=== PATIENT | male | born 1945 | race Hispanic/Latino ===

== ENCOUNTER 2018-04-29 12:22 | Inpatient (IN) | payer MEDICARE ==
--- NOTE | 2018-04-29 12:57 | Emergency Department Report ---
ED Neuro Deficit HPI - General Chief Complaint: Neuro Symptoms/Deficit Stated Complaint: POSSIBLE STROKE Time Seen by Provider: 04/29/18 12:55 Source: patient, family Mode of arrival: Ambulatory Limitations: No Limitations - History of Present Illness Initial Comments: This is a 72-year-old male who is unknown to this provider previously, has a past medical history of stroke, in the right ear, mild residual right- sided weakness. His primary care doctor is Dr. Nikolai Mcfarland. He presents to the ER with a complaint of resolved speech disturbance, resolved slurred speech, and resolved weakness in the right upper extremity, and resolved numbness in the right lower extremity. He has no complaints at this time. -: Sudden Location: speech, right arm, right leg Presenting Symptoms: Present: Weak/Paralyzed One Side, Unable to Speak Clearly. Absent: Sudden, Severe Headache, Blurred/Loss of Vision, Facial Droop/Numbness , Altered Mental Status History of same: Yes Place: home Severity: moderate Improves With: none Worsens With: none On Anticoagulants: Yes Context: sudden onset Associated Symptoms: weakness. denies: confusion, chest pain, cough, diaphoresis, fever/chills, headaches, loss of appetite, malise, nausea/vomiting , vertigo, seizures, shortness of breath, syncope - Related Data Allergies/Adverse Reactions: Allergies Allergy/AdvReac Type Severity Reaction Status Date / Time latex Allergy Unknown Verified 04/29/18 12:44 ED Review of Systems ROS: Stated complaint: POSSIBLE STROKE Other details as noted in HPI Constitutional: denies: fever Eyes: denies: eye discharge ENT: denies: epistaxis Respiratory: denies: cough Cardiovascular: denies: chest pain Genitourinary: denies: dysuria Musculoskeletal: denies: back pain Skin: denies: lesions Neurological: weakness Psychiatric: anxiety ED Past Medical Hx - Past Medical History Hx CVA: Yes (2008- mild weakness right side) Hx Arthritis: Yes (bilateral knees) Additional medical history: deaf right ear,hearing aid left ear - Surgical History Additional Surgical History: left femur,tonsillectomy - Social History Smoking Status: Never Smoker Substance Use Type: None ED Neuro Physical Exam - General Limitations: No Limitations General appearance: alert, in no apparent distress Suspected Stroke: Yes - Head Head exam: Present: atraumatic, normocephalic - Eye Eye exam: Present: normal appearance, EOMI. Absent: nystagmus - ENT ENT exam: Present: normal exam, normal orophraynx, mucous membranes moist, normal external ear exam - Neck Neck exam: Present: normal inspection, full ROM. Absent: tenderness, meningismus - Respiratory Respiratory exam: Present: normal lung sounds bilaterally. Absent: respiratory distress - Cardiovascular Cardiovascular Exam: Present: regular rate, normal rhythm, normal heart sounds. Absent: bradycardia, tachycardia, irregular rhythm, systolic murmur, diastolic murmur, rubs, gallop - GI/Abdominal GI/Abdominal exam: Present: soft. Absent: distended, tenderness, guarding, rebound, rigid, pulsatile mass - Rectal Rectal exam: Present: deferred - Extremities Exam Extremities exam: Present: normal inspection, full ROM, normal capillary refill , other (2+ pulses noted in the bilateral upper, lower extremities. Compartments soft. No long bony tenderness. The pelvis is stable.). Absent: tenderness, pedal edema, joint swelling, calf tenderness - Back Exam Back exam: Present: normal inspection, full ROM. Absent: tenderness, CVA tenderness (R), paraspinal tenderness, vertebral tenderness - Neurological Exam Neurological exam: Present: alert, oriented X3, CN II-XII intact, normal gait, other (Extraocular movements intact. Tongue midline. No facial droop. Facial sensation intact to light touch in the V1, V2, V3 distribution bilaterally. 5 and 5 strength in 4 extremities.. Sensation is intact to light touch in 4 extremities.). Absent: motor sensory deficit - NIHSS Assessment Interval: Baseline 1a. Level of Consciousness: alert 1b. LOC Questions: answers correctly 1c. LOC Commands: performs tasks correctly 2. Best Gaze: normal 3. Visual: no visual loss 4. Facial Palsy: normal symmetrical movement 5b. Motor Arm Right: no drift 5a. Motor Arm Left: no drift 6a. Motor Leg Left: no drift 6b. Motor Leg Right: no drift 7. Limb Ataxia: absent 8. Sensory: normal 9. Best Language: no aphasia 10. Dysarthria: normal 11. Extinction/Inattention: no abnormality Total Score: 0 Stroke Severity: No Stroke Symptoms - Psychiatric Psychiatric exam: Present: normal affect, normal mood - Skin Skin exam: Present: warm, dry, intact, normal color. Absent: rash ED Course Vital Signs 04/29/18 04/29/18 04/29/18 12:35 12:46 12:47 Temperature 97.9 F Pulse Rate 83 Respiratory 18 Rate Blood Pressure 178/91 O2 Sat by Pulse 98 97 98 Oximetry - Reevaluation(s) Reevaluation #1: 04/29/18 14:10 Dr. Horan accepted the patient to the medical service. Reevaluation #2: 04/29/18 14:19 04/29/18 14:20 Case is discussed with consult to neurology, Dr. Linda Cedeno, who is in agreement that the patient does not meet TPA criteria and does not require emergent endovascular intervention. He does recommend every 2 hours neuro checks for the next 12 hours. - Lab Data Result diagrams: 04/29/18 12:40 04/29/18 12:40 Lab Results 04/29/18 04/29/18 04/29/18 Range/Units 12:39 12:40 12:40 WBC 5.3 (4.5-11.0) K/mm3 RBC 4.64 (3.65-5.03) M/mm3 Hgb 15.7 H (11.8-15.2) gm/dl Hct 42.3 (35.5-45.6) % MCV 91 (84-94) fl MCH 34 H (28-32) pg MCHC 37 H (32-34) % RDW 13.5 (13.2-15.2) % Plt Count 152 (140-440) K/mm3 Lymph % (Auto) 24.5 (13.4-35.0) % [place] % (Auto) 6.7 (0.0-7.3) % Eos % (Auto) 1.3 (0.0-4.3) % Baso % (Auto) 1.2 (0.0-1.8) % Lymph # 1.3 (1.2-5.4) K/mm3 [place] # 0.4 (0.0-0.8) K/mm3 Eos # 0.1 (0.0-0.4) K/mm3 Baso # 0.1 (0.0-0.1) K/mm3 Seg Neutrophils % 66.3 (40.0-70.0) % Seg Neutrophils # 3.5 (1.8-7.7) K/mm3 PT 13.0 (12.2-14.9) Sec. INR 0.94 (0.87-1.13) APTT 32.7 (24.2-36.6) Sec. Thrombin Time 17.2 (15.1-19.6) Sec. Sodium (137-145) mmol/L Potassium (3.6-5.0) mmol/L Chloride (98-107) mmol/L Carbon Dioxide (22-30) mmol/L Anion Gap mmol/L BUN (9-20) mg/dL Creatinine (0.8-1.5) mg/dL Estimated GFR ml/min BUN/Creatinine Ratio % Glucose (75-100) mg/dL POC Glucose 122 H (70-105) Calcium (8.4-10.2) mg/dL Troponin T (0.00-0.029) ng/mL 04/29/18 Range/Units 12:40 WBC (4.5-11.0) K/mm3 RBC (3.65-5.03) M/mm3 Hgb (11.8-15.2) gm/dl Hct (35.5-45.6) % MCV (84-94) fl MCH (28-32) pg MCHC (32-34) % RDW (13.2-15.2) % Plt Count (140-440) K/mm3 Lymph % (Auto) (13.4-35.0) % [place] % (Auto) (0.0-7.3) % Eos % (Auto) (0.0-4.3) % Baso % (Auto) (0.0-1.8) % Lymph # (1.2-5.4) K/mm3 [place] # (0.0-0.8) K/mm3 Eos # (0.0-0.4) K/mm3 Baso # (0.0-0.1) K/mm3 Seg Neutrophils % (40.0-70.0) % Seg Neutrophils # (1.8-7.7) K/mm3 PT (12.2-14.9) Sec. INR (0.87-1.13) APTT (24.2-36.6) Sec. Thrombin Time (15.1-19.6) Sec. Sodium 130 L (137-145) mmol/L Potassium 4.5 (3.6-5.0) mmol/L Chloride 94.1 L (98-107) mmol/L Carbon Dioxide 21 L (22-30) mmol/L Anion Gap 19 mmol/L BUN 16 (9-20) mg/dL Creatinine 0.8 (0.8-1.5) mg/dL Estimated GFR > 60 ml/min BUN/Creatinine Ratio 20 % Glucose 146 H (75-100) mg/dL POC Glucose (70-105) Calcium 9.2 (8.4-10.2) mg/dL Troponin T < 0.010 (0.00-0.029) ng/mL - EKG Data -: EKG Interpreted by Me EKG shows normal: sinus rhythm, intervals, QRS complexes When compared to previous EKG there are: previous EKG unavailable - Radiology Data Radiology results: report reviewed, image reviewed Noncontrast CT scan of the brain is negative for acute disease - Medical Decision Making Differential diagnosis, including but not limited to: Transient ischemic attack , stroke, Leonardo's paralysis Assessment and plan: 72-year-old male with resolved right-sided numbness, weakness and resolved slurred speech. Has an NIH score of 0. Therefore does not require TPA. Also, given his resolution of symptoms and his normal examination at this time, does not require emergent endovascular imaging at this time. Patient has a high vascular risk profile, and will be admitted to the hospital for presumed transient ischemic attack. The hospital physician is paged to arrange admission. - Core Measures Measure Exclusions: not indicated - Thrombolytic Inclusion/Exclusion Thrombolytic Contraindications: Rapidily Improving s/s Critical care attestation.: If time is entered above; I have spent that time in minutes in the direct care of this critically ill patient, excluding procedure time. ED Disposition Clinical Impression: TIA (transient ischemic attack) Disposition: -09 OP ADMIT IP TO THIS HOSP Is pt being admited?: Yes Does the pt Need Aspirin: Yes Condition: Good Referrals: NIKOLAI MCFARLAND MD [Primary Care Provider] - 3-5 Days
[2018-04-29 13:03] LABS: Basophils # (Auto) 0.1 K/mm3 (0.0-0.1); Basophils % (Auto) 1.2 % (0.0-1.8); Eosinophils # (Auto) 0.1 K/mm3 (0.0-0.4); Eosinophils % (Auto) 1.3 % (0.0-4.3); Lymphocytes # (Auto) 1.3 K/mm3 (1.2-5.4); Lymphocytes % (Auto) 24.5 % (13.4-35.0); Mean Corpuscular HGB Conc 37 % (32-34); Mean Corpuscular Hemoglobin 34 pg (28-32); Mean Corpuscular Volume 91 fl (84-94); Monocytes # (Auto) 0.4 K/mm3 (0.0-0.8); Monocytes % (Auto) 6.7 % (0.0-7.3); Platelet Count 152 K/mm3 (140-440); Red Blood Count 4.64 M/mm3 (3.65-5.03); Red Cell Distribution Width 13.5 % (13.2-15.2)
[2018-04-29 13:08] LABS: Hematocrit 42.3 % (35.5-45.6); Hemoglobin 15.7 gm/dl (11.8-15.2)
[2018-04-29 13:10] LABS: BUN/Creatinine Ratio 20; Blood Urea Nitrogen 16 mg/dL (9-20); Calcium 9.2 mg/dL (8.4-10.2); Hemolysis Index 21
[2018-04-29 13:13] LABS: INR 0.94 (0.87-1.13)
[2018-04-29 13:14] LABS: Partial Thromboplastin Time 32.7 Sec. (24.2-36.6); Thrombin Time 17.2 Sec. (15.1-19.6)
--- NOTE | 2018-04-29 13:29 | Cat Scan Report ---
FINAL REPORT EXAM: CT HEAD/BRAIN WO CON HISTORY: neuro deficits < 6hrs or sx present upon awakening TECHNIQUE: CT of the head was performed. No intravenous contrast was administered. PRIORS: None. FINDINGS: There is an old left thalamic lacunar infarct. There is no evidence of intracranial hemorrhage. There is no edema, mass effect or midline shift. There are no abnormal extra-axial fluid collections. The ventricles are appropriate for brain volume. There is no skull fracture seen. The visualized aspects of the sinuses are clear. IMPRESSION: There is no acute intracranial abnormality identified.
[2018-04-29] MEDS ORDERED: BABY ASPIRIN PO ONE ×2 (13:50→17:30)
--- NOTE | 2018-04-29 14:06 | History and Physical Report ---
History of Present Illness Chief complaint: I felt weak History of present illness: 72 YO Male with CVA, OA presents to ED for evaluation. Pt states that he experienced acute onset of blurred vision, Facial weakness, slurred speech, right arm and right leg weakness. Pt symptoms resolved after about 30 minutes. Pt subsequently transported to [facility] for further care and evaluation. Pt denies fever, chills, CP, Palpitations, NVD, Syncope, Trauma, Seizure, loss of bowel or bladder continence. Pt seen and evaluated in ED. A code stroke was called. Pt found to have symptoms consistent with CVA. Pt outside therapeutic window for TPA. Pt admitted to telemetry and initiated on CVA protocol. Past History Past Medical History: arthritis, stroke Past Surgical History: tonsillectomy, Other (Left Femur surgery) Social history: , lives with family Family history: no significant family history (reviewed) Medications and Allergies Allergies Allergy/AdvReac Type Severity Reaction Status Date / Time latex Allergy Unknown Verified 04/29/18 12:44 Home Medications Medication Instructions Recorded Confirmed Last Taken Type Lisinopril [Zestril TAB] 10 mg PO QDAY 04/29/18 04/29/18 04/29/18 History Multivitamin [Multiple Vitamins] 1 each PO DAILY 04/29/18 04/29/18 04/29/18 History Review of Systems Constitutional: no weight loss, no weight gain, no fever, no chills Ears, nose, mouth and throat: no ear pain, no ear discharge, no tinnitis, no decreased hearing, no nose pain, no nasal congestion Cardiovascular: no orthopnea, no palpitations, no rapid/irregular heart beat, no edema, no syncope, no lightheadedness Respiratory: no cough, no cough with sputum, no excessive sputum, no hemoptysis , no shortness of breath Gastrointestinal: no abdominal pain, no nausea, no vomiting, no diarrhea, no constipation Genitourinary Male: no hematuria, no flank pain, no discharge, no urinary frequency, no urinary hesitancy Rectal: no pain, no incontinence, no bleeding Musculoskeletal: no neck stiffness, no neck pain, no shooting arm pain, no arm numbness/tingling, no low back pain, no shooting leg pain Integumentary: no rash, no pruritis, no redness, no sores, no wounds Neurological: weakness, ataxia, change in speech, gait dysfunction, motor disturbance, no head injury, no seizures, no vertigo, no headaches, no migraines Psychiatric: no anxiety, no memory loss, no change in sleep habits, no sleep disturbances, no insomnia, no hypersomnia, no change in appetite Endocrine: no cold intolerance, no heat intolerance, no polyphagia, no excessive thirst, no polydipsia, no polyuria, no nocturia Hematologic/Lymphatic: no easy bruising, no easy bleeding, no lymphadenopathy, no lymphedema Allergic/Immunologic: no urticaria, no allergic rhinitis, no wheezing, no persistent infections, no anaphylaxis Exam - Constitutional Vitals: Temp Pulse Resp BP Pulse Ox 97.9 F 83 18 178/91 98 04/29/18 12:35 04/29/18 12:35 04/29/18 12:35 04/29/18 12:35 04/29/18 12:47 General appearance: Present: no acute distress, well-nourished - EENT Eyes: Present: PERRL ENT: hearing intact, clear oral mucosa - Neck Neck: Present: supple, normal ROM - Respiratory Respiratory effort: normal Respiratory: bilateral: CTA - Cardiovascular Heart Sounds: Present: S1 & S2. Absent: rub, click - Extremities Extremities: pulses symmetrical, No edema Peripheral Pulses: within normal limits - Abdominal General gastrointestinal: Present: soft, non-tender, non-distended, normal bowel sounds Male genitourinary: Present: normal - Integumentary Integumentary: Present: clear, warm, dry - Musculoskeletal Musculoskeletal: right sided weakness - Psychiatric Psychiatric: appropriate mood/affect, intact judgment & insight - Neurologic Neurologic: CNII-XII intact, moves all extremities Results - Labs CBC & Chem 7: 04/29/18 12:40 04/29/18 12:40 Labs: Abnormal lab results 04/29/18 04/29/18 04/29/18 Range/Units 12:39 12:40 12:40 Hgb 15.7 H (11.8-15.2) gm/dl MCH 34 H (28-32) pg MCHC 37 H (32-34) % Sodium 130 L (137-145) mmol/L Chloride 94.1 L (98-107) mmol/L Carbon Dioxide 21 L (22-30) mmol/L Glucose 146 H (75-100) mg/dL POC Glucose 122 H (70-105) Assessment and Plan - Patient Problems (1) CVA (cerebral vascular accident) Current Visit: Yes Status: Acute Qualifiers: Precerebral and cerebral artery: middle cerebral artery Laterality of affected vessel: left Plan to address problem: Stroke protocol: CT Brain, MRI Brain, MRA Brain, Echo, Carotid doppler, PT/OT/ Speech Therapy, Antiplatelet therapy, lipid panel, neuro checks, (2) Arthritis Current Visit: Yes Status: Acute Plan to address problem: Pain control, supportive care. (3) Hyponatremia syndrome Current Visit: Yes Status: Acute Plan to address problem: IVF resuscitation, repeat bmp. (4) DVT prophylaxis Current Visit: Yes Status: Acute Plan to address problem: SCD to BLE while in bed.
[2018-04-29] MEDS ORDERED: ZOFRAN IV PRN (14:07)
[2018-04-29] MEDS ORDERED: PHENERGAN PR PRN (14:07)
[2018-04-29] MEDS ORDERED: REGLAN PO PRN (14:07)
[2018-04-29] MEDS ORDERED: DULCOLAX PR PRN (14:07)
[2018-04-29] MEDS ORDERED: SODIUM CHLORIDE FLUSH SYRINGE 10 ML IV PRN (14:07)
[2018-04-29] MEDS ORDERED: MILK OF MAGNESIA PO PRN (14:07)
[2018-04-29] MEDS ORDERED: TYLENOL PO PRN (14:07)
[2018-04-30 06:59] LABS: Chol/HDL Ratio 4.61 %
[2018-04-30 09:04] VITALS: BP 121/73
--- NOTE | 2018-04-30 12:27 | Magnetic Resonance Report ---
MRI OF THE BRAIN WITHOUT CONTRAST: HISTORY: Stroke PROCEDURE: Multiplanar, multisequence MR imaging of the brain without IV contrast was performed. FINDINGS: CT head performed 04/29/18 was reviewed. MRI demonstrates mild cortical volume loss and mild nonspecific chronic white matter changes which are probably appropriate for this persons age. 7 mm chronic lacunar infarct in the posterior left thalamus is also noted. No evidence for acute ischemia, hemorrhage or mass. No extra-axial fluid collection. The midline structures are central. The basal cisterns are patent. Normal ventricular size. The orbital cavities and sella turcica demonstrate no abnormality. The visualized paranasal sinuses and mastoid air cells are well aerated. IMPRESSION: No acute process. Mild volume loss and chronic white matter changes. Chronic lacunar infarct in the left thalamus.
--- NOTE | 2018-04-30 12:28 | Magnetic Resonance Report ---
MRA HEAD WITHOUT CONTRAST HISTORY: Stroke. [id number] imaging with MIP reformations of the [place] of [place] is submitted. The arteries appear widely patent and free of hemodynamically significant stenosis, aneurysm or dissection. origin of the right [employer] is noted. IMPRESSION: Normal variant MRA head. No hemodynamically significant stenosis or occlusion is identified.
--- NOTE | 2018-04-30 12:37 | Discharge Summary ---
Providers - Providers Date of Admission: 04/29/18 14:07 Date of discharge: 04/30/18 Attending physician: JOAQUIN THAKUR 04/29/18 12:57 Consult to Physician [CONS] Urgent Comment: Consulting Provider: SUKHWINDER SAWYER Physician Instructions: Reason For Exam: tia 04/29/18 14:07 Occupational Therapy Evaluate and Treat [CONS] Routine Comment: Reason For Exam: Neuro deficits Physical Therapy Evaluation and Treat [CONS] Routine Comment: Reason For Exam: Neuro deficits 04/29/18 14:08 Speech Therapy Evaluation and Treat [CONS] Routine Reason For Exam: swallow eval Primary care physician: XIN MCFARLAND Hospitalization Condition: Good Disposition: DC-01 TO HOME OR SELFCARE - Discharge Diagnoses (1) TIA (transient ischemic attack) Status: Acute Core Measure Documentation - Palliative Care Palliative Care/ Comfort Measures: Not Applicable - Core Measures Any of the following diagnoses?: none Exam - Constitutional Vitals: Temp Pulse Resp BP Pulse Ox 97.9 F 67 20 121/73 97 04/30/18 09:02 04/30/18 09:02 04/30/18 09:02 04/30/18 09:02 04/30/18 10:00 Plan Activity: no restrictions Diet: low fat, low cholesterol Additional Instructions: 1.Follow up with PCP in 1 week. Follow up with: XIN MCFARLAND MD [Primary Care Provider] - 3-5 Days Prescriptions: Aspirin EC [Aspirin Enteric Coated TAB] 325 mg PO QDAY #30 tablet.
== END 2018-04-30 14:45 | disposition home or self-care (01) | DRG 69 ==
LOC: ED 12:22 → 4A 14:07
PROVIDERS: ADMIT Internal Medicine; ATTEND Internal Medicine
DX: G45.9 Transient cerebral ischemic attack, unspecified (principal); E87.1 Hypo-osmolality and hyponatremia; I69.351 Hemiplegia and hemiparesis following cerebral infarction affecting right dominant side; M17.0 Bilateral primary osteoarthritis of knee; Z90.89 Acquired absence of other organs; Z91.040 Latex allergy status; Z79.899 Other long term (current) drug therapy
CPT/HCPCS: 36415; 70450; 70544; 70551; 80048; 80061; 82962; 84484; 85025; 85610; 85670; 85730; 93005; 93010; 93306; 93880; 95819

== ENCOUNTER 2018-06-17 06:47 | Day surgery (SDC) | payer MEDICARE ==
--- NOTE | 2018-06-17 07:51 | Anesthesia Consultation ---
Anesthesia Consult and Med Hx Date of service: 06/17/18 - Airway Anesthetic Teeth Evaluation: Dentures ROM Head & Neck: Adequate Mallampati Class: Class II Intubation Access Assessment: Probably Good - Pulmonary Exam CTA: Yes - Cardiac Exam Cardiac Exam: RRR - Pre-Operative Health Status ASA Pre-Surgery Classification: ASA3 Proposed Anesthetic Plan: General - Pre-Anesthesia Comment Pre-Anesthesia Comments: micrognathia, redundant tissue; very active- yard work , weekly meals on wheels delivery - Pulmonary Hx Smoking: Yes (STOPPED X 40 YRS, 3PPD X 20 YRS) Hx Asthma: No Hx Respiratory Symptoms: No SOB: No COPD: No Home Oxygen Therapy: No Hx Pneumonia: No Hx Sleep Apnea: No (YASIR PRE SCREEN HIGH RISK) - Cardiovascular System Hx Hypertension: Yes (X 8 YRS; hyperlipidemia) Hx Coronary Artery Disease: No Hx Heart Attack/AMI: No Hx Angina: No Hx Percutaneous Transluminal Coronary Angioplasty (PTCA): No Hx Cardia Arrhythmia: No Hx Pacemaker: No Hx Internal Defibrillator: No Hx Valvular Heart Disease: No Hx Heart Murmur: No - Central Nervous System CVA: Yes (;occasionally uses a cane) Hx Back Pain: No Hx Psychiatric Problems: No - Gastrointestinal Hx Gastroesophageal Reflux Disease: No (food related but very rare) - Endocrine Hx Renal Disease: No Hx End Stage Renal Disease: No Hx Cirrhosis: No Hx Liver Disease: No Hx Insulin Dependent Diabetes: No Hx Non-Insulin Dependent Diabetes: No Hx Thyroid Disease: No Hx Hypothyroidism: No Hx Hyperthyroidism: No - Hematic Hx Anemia: No Hx Sickle Cell Disease: No - Other Systems Hx Alcohol Use: No Hx Substance Use: No Hx Cancer: No Hx Obesity: No
[2018-06-17] MEDS ORDERED: ANCEF/STERILE WATER 2 GM/20 ML IV NR (08:03)
[2018-06-17] MEDS ORDERED: ANCEF/STERILE WATER 2 GM/20 ML 2 GM/20 ML SYRINGE IV ONE (08:08)
[2018-06-17] MEDS ORDERED: SUBLIMAZE ONE (08:21)
[2018-06-17] MEDS ORDERED: DIPRIVAN 10 MG/ML IV ONE (08:21)
[2018-06-17] MEDS ORDERED: PEPCID IV NR (08:30)
[2018-06-17] MEDS ORDERED: LACTATED RINGERS 1,000 ML IV SCH (08:30)
[2018-06-17] MEDS ORDERED: XYLOCAINE MPF 2% ONE (09:03)
[2018-06-17] MEDS ORDERED: NEO SYNEPHRINE/NS Syringe(OR USE) IV ONE (09:03)
[2018-06-17] MEDS ORDERED: DECADRON ONE (09:03)
[2018-06-17] MEDS ORDERED: ROBINUL ONE (09:03)
[2018-06-17] MEDS ORDERED: ZOFRAN ONE (09:03)
[2018-06-17] MEDS ORDERED: NEO SYNEPHRINE ONE (09:11)
[2018-06-17] MEDS ORDERED: NACL 0.9% 100 ML ONE (09:11)
[2018-06-17] MEDS ORDERED: WATER FOR IRRIG STERILE IR ONE (09:15)
--- NOTE | 2018-06-17 09:22 | Post Operative Note ---
Date of procedure: 06/17/18 Pre-op diagnosis: left ureteralstone Post-op diagnosis: same Findings: as above Procedure: cysto ureteroscopy laser extraxction Anesthesia: GETA Surgeon: NAYELY BARRERA Estimated blood loss: none Pathology: list (stone) Specimen disposition: given to patient/family Condition: stable Disposition: PACU
[2018-06-17] MEDS ORDERED: LACTATED RINGERS 1,000 ML ONE (09:24)
--- NOTE | 2018-06-17 09:24 | Discharge Summary ---
Short Stay Discharge Plan Activity: other (no straining ) Weight Bearing Status: Full Weight Bearing Diet: low fat, low salt Special Instructions: other (has stent ) Durable Medical Equipment Needed Upon Discharge: other (stent) Follow up with: XIN MCFARLAND MD [Primary Care Provider] - 7 Days NAYELY BARRERA MD [Staff Physician] - 7 Days
--- NOTE | 2018-06-17 09:52 | Operative Report ---
PREOPERATIVE DIAGNOSIS: Large left distal ureteral stone. POSTOPERATIVE DIAGNOSIS: Large left distal ureteral stone. PROCEDURES: Cystoscopy, left retrograde, left ureteroscopy, laser of stone, stone extraction, J stent. SURGEON: Valentino Hunt MD ANESTHESIA: General. FINDINGS: The gentleman with a large stone, left hydronephrosis. Minimal pain. The stone is over 8 mm in the distal ureter, now presents for treatment. DESCRIPTION OF PROCEDURE: The patient brought to the operating room and placed on the operating table. Following induction of anesthesia, placed in lithotomy position, prepped and draped in usual sterile fashion. Cystoscopy showed no bladder tumors. Urethra was normal. Retrograde showed a large stone in the distal ureter. The balloon dilatation was carried out. Stone was way too big to extract. It had multiple spicules on it. With the laser, we broke it into about 10 pieces and they were extracted. The patient tolerated the procedure well. A 6-[place]est[place] double J coiled in the kidney. The patient tolerated the procedure well and brought to recovery in stable condition. Stone will be given to the family. Family notified. JOB# [id number] ALEX/ALMAZ
[2018-06-17 10:43] VITALS: BP 159/86
--- NOTE | 2018-06-18 05:12 | Anesthesia Day of Surgery ---
Anesthesia Day of Surgery - Day of Surgery Patient Examined: Yes Patient H&P Reviewed: Yes Patient is NPO: Yes
--- NOTE | 2018-06-18 05:12 | Post Anesthesia Evaluation ---
- Post Anesthesia Evaluation Patient Participated: Yes Airway Patent: Yes Stable Respiratory Function: Yes Nausea/Vomiting: No Temp > 96.8F: Yes Pain Manageable: Yes Adequeate Hydration: Yes Anesthesia Complications: No Block Receding Appropriately: Not Applicable Patient on Ventilator: No
--- NOTE | 2018-06-18 07:50 | Fluoroscopy Report ---
FLUOROSCOPY RETROGRADE UROGRAPHY: FLUOROSCOPY URETER/NEPHROSTOMY DILATATION LEFT: HISTORY: Left ureteral stone. FINDINGS: Fluoroscopy was provided by radiology during retrograde urography by the urologist. 6 fluoroscopic images were captured. The images demonstrate an approximate 9 mm distal left ureteral stone. Left ureteroscopy was performed. A holmium laser was utilized. Stone fragments were removed with a grasper. A left ureteral stent was placed which adequately drains the left collecting system. No images of the right pyelogram are presented. IMPRESSION: Distal left ureteral stone removal. Left ureteral stent placement.
== END 2018-06-17 11:18 | disposition home or self-care (01) ==
LOC: OR 06:47
PROVIDERS: ATTEND Urology
DX: N13.2 Hydronephrosis with renal and ureteral calculous obstruction (principal); N40.0 Benign prostatic hyperplasia without lower urinary tract symptoms; K21.9 Gastro-esophageal reflux disease without esophagitis; I10 Essential (primary) hypertension; E78.00 Pure hypercholesterolemia, unspecified; E11.9 Type 2 diabetes mellitus without complications; M19.90 Unspecified osteoarthritis, unspecified site; Z79.82 Long term (current) use of aspirin; Z79.899 Other long term (current) drug therapy; Z91.040 Latex allergy status; Z87.891 Personal history of nicotine dependence; Z86.73 Personal history of transient ischemic attack (TIA), and cerebral infarction without residual deficits; Z98.890 Other specified postprocedural states
CPT/HCPCS: 52356; 74420; 82962; A4217; C1726; C1758; C1769; C2617; J0690; J1100; J2370; J2405; J2704; J3010; J7120; Q9967

== ENCOUNTER 2019-04-16 22:54 | Emergency (ER) | payer MEDICARE ==
[2019-04-16] MEDS ORDERED: BENADRYL ONE (23:17)
[2019-04-16] MEDS ORDERED: SOLU-Medrol ONE (23:17)
[2019-04-16] MEDS ORDERED: PEPCID IV ONE ×2 (23:17→23:25)
[2019-04-16] MEDS ORDERED: SOLU-Medrol IV ONE (23:25)
[2019-04-16] MEDS ORDERED: BENADRYL IV ONE (23:25)
--- NOTE | 2019-04-16 23:31 | Emergency Department Report ---
ED Allergic Reaction HPI - General Stated complaint: ALLERGIC REACTION Time Seen by Provider: 04/16/19 23:24 - History of Present Illness Initial Comments: Patient is 73 years old male with history of CVA, hypertension and diabetes. Patient presented to the ER complaining of lower lip swelling started this evening. Patient denied any shortness of breath or difficulty swallowing. Patient stated the symptoms started after he started drinking his fluid preparation for his colonoscopy tomorrow. Patient also taking lisinopril for hypertension. Patient is alert, oriented and in no acute distress. MD Complaint: allergic reaction, facial swelling Exposure: medication Symptoms: lip swelling Severity: moderate Treatment Prior to Arrival: none Previous Allergy History: none - Related Data Home Medications Medication Instructions Recorded Confirmed Last Taken Lisinopril [Zestril TAB] 20 mg PO PRN PRN 04/29/18 06/14/18 06/16/18 Multivitamin [Multiple Vitamins] 1 each PO DAILY 04/29/18 06/17/18 06/13/18 Acetaminophen [Tylenol Extra 500 mg PO PRN PRN 06/14/18 06/17/18 06/14/18 Strength] Aspirin EC 81 mg PO QDAY 06/14/18 06/14/18 06/13/18 Cholecalciferol (Vitamin D3) 1,000 unit PO DAILY 06/14/18 06/14/18 06/13/18 [Vitamin D3] Cranberry Conc/Ascorbic Acid 1 each PO DAILY 06/14/18 06/14/18 06/13/18 [Cranberry Concentrate Softgel] Diazepam [Valium] 5 mg PO PRN PRN 06/14/18 06/17/18 06/12/[address] [Yoko Tristan] 75 mg PO DAILY 06/14/18 06/14/18 06/13/18 [place]-3/Dha/Epa/Fish Oil [Fish Oil 1 cap PO DAILY 06/14/18 06/14/18 06/13/18 1,000 mg Softgel] Vitamin B Complex [Super B-50 1 each PO DAILY 06/14/18 06/14/18 06/13/18 Complex] Previous Rx's Medication Instructions Recorded Last Taken Type AtorvaSTATin [Lipitor] 20 mg PO QHS #30 tab 04/30/18 06/16/18 Rx Allergies Allergy/AdvReac Type Severity Reaction Status Date / Time bisacodyl [From Biscolax] Allergy Angioedema Verified 04/16/19 23:28 latex Allergy SKIN Verified 06/14/18 13:07 BLISTERS lisinopril Allergy Angioedema Verified 04/16/19 23:28 ED Review of Systems ROS: Stated complaint: ALLERGIC REACTION Other details as noted in HPI Comment: All other systems reviewed and negative Constitutional: denies: chills, fever Respiratory: denies: cough, orthopnea, shortness of breath, SOB with exertion, SOB at rest, wheezing Cardiovascular: denies: chest pain, palpitations, dyspnea on exertion Gastrointestinal: denies: abdominal pain, nausea, vomiting, diarrhea, constipation, hematemesis Genitourinary: denies: urgency Musculoskeletal: denies: back pain Neurological: denies: headache, weakness, numbness, paresthesias, confusion, abnormal gait ED Past Medical Hx - Past Medical History Hx Hypertension: Yes (X 8 YRS; hyperlipidemia) Hx CVA: Yes (2007- mild weakness right side) Hx Heart Attack/AMI: No Hx Diabetes: Yes (DIET CONTROLLED) Hx Liver Disease: No Hx Renal Disease: No Hx Sickle Cell Disease: No Hx Arthritis: Yes Hx Kidney Stones: Yes Hx Asthma: No Hx COPD: No Hx HIV: No Additional medical history: deaf right ear,hearing aid left ear - Surgical History Hx Pacemaker: No Hx Internal Defibrillator: No Additional Surgical History: left femur,tonsillectomy - Social History Smoking Status: Former Smoker - Medications Home Medications: Home Medications Medication Instructions Recorded Confirmed Last Taken Type Lisinopril [Zestril TAB] 20 mg PO PRN PRN 04/29/18 06/14/18 06/16/18 History Multivitamin [Multiple Vitamins] 1 each PO DAILY 04/29/18 06/17/18 06/13/18 History AtorvaSTATin [Lipitor] 20 mg PO QHS #30 tab 04/30/18 06/14/18 06/16/18 Rx Acetaminophen [Tylenol Extra 500 mg PO PRN PRN 06/14/18 06/17/18 06/14/18 History Strength] Aspirin EC 81 mg PO QDAY 06/14/18 06/14/18 06/13/18 History Cholecalciferol (Vitamin D3) 1,000 unit PO DAILY 06/14/18 06/14/18 06/13/18 History [Vitamin D3] Cranberry Conc/Ascorbic Acid 1 each PO DAILY 06/14/18 06/14/18 06/13/18 History [Cranberry Concentrate Softgel] Diazepam [Valium] 5 mg PO PRN PRN 06/14/18 06/17/18 06/12/[address] [Voltaren Dr] 75 mg PO DAILY 06/14/18 06/14/18 06/13/18 History [place]-3/Dha/Epa/Fish Oil [Fish Oil 1 cap PO DAILY 06/14/18 06/14/18 06/13/18 History 1,000 mg Softgel] Vitamin B Complex [Super B-50 1 each PO DAILY 06/14/18 06/14/18 06/13/18 History Complex] ED Physical Exam - General General appearance: alert, in no apparent distress - Head Head exam: Present: atraumatic, normocephalic, normal inspection - Eye Eye exam: Present: normal appearance, PERRL Pupils: Present: normal accommodation - ENT ENT exam: Present: mucous membranes moist, other (lower lip swelling) - Neck Neck exam: Present: normal inspection, full ROM. Absent: tenderness, meningismus, lymphadenopathy, thyromegaly - Respiratory Respiratory exam: Present: normal lung sounds bilaterally - Cardiovascular Cardiovascular Exam: Present: regular rate, normal rhythm, normal heart sounds - GI/Abdominal GI/Abdominal exam: Present: soft, normal bowel sounds. Absent: distended, tenderness, guarding, rebound, rigid, organomegaly, mass, bruit, pulsatile mass, hernia - Extremities Exam Extremities exam: Present: normal inspection, full ROM, normal capillary refill. Absent: calf tenderness - Back Exam Back exam: Present: normal inspection, full ROM. Absent: CVA tenderness (R), CVA tenderness (L), muscle spasm, paraspinal tenderness, vertebral tenderness - Neurological Exam Neurological exam: Present: alert, oriented X3, CN II-XII intact - Psychiatric Psychiatric exam: Present: normal mood - Skin Skin exam: Present: warm, intact, normal color ED Course Vital Signs 04/16/19 04/16/19 04/16/19 23:06 23:16 23:28 Temperature 98.2 F Pulse Rate 74 69 68 Respiratory 21 18 18 Rate Blood Pressure O2 Sat by Pulse 98 99 98 Oximetry 04/16/19 04/16/19 04/16/19 23:30 23:32 23:45 Temperature Pulse Rate 66 64 Respiratory 11 L 16 10 L Rate Blood Pressure 136/69 136/69 O2 Sat by Pulse 99 99 Oximetry 04/17/19 00:00 Temperature Pulse Rate 64 Respiratory 11 L Rate Blood Pressure 145/74 O2 Sat by Pulse 98 Oximetry ED Medical Decision Making - Lab Data Result diagrams: 04/16/19 23:41 04/16/19 23:41 - Medical Decision Making Patient is 73 years old male with history of CVA, hypertension and diabetes. Patient presented to the ER complaining of lower lip swelling started this evening. Patient denied any shortness of breath or difficulty swallowing. Patient stated the symptoms started after he started drinking his fluid preparation for his colonoscopy tomorrow. Patient also taking lisinopril for hypertension. Patient is alert, oriented and in no acute distress. patient stated that he feel much better. Patient evaluated by me multiple times.Patient observed in the ER, patient denied any SOB. Patient advised to follow-up with his PCP in the next 2-3 days and to return to the ER if symptoms get worse. Critical care attestation.: If time is entered above; I have spent that time in minutes in the direct care of this critically ill patient, excluding procedure time. ED Disposition Clinical Impression: Angio-edema Disposition: DC-01 TO HOME OR SELFCARE Is pt being admited?: No Condition: Stable Instructions: Angioedema (ED)
[2019-04-17 00:01] LABS: Basophils # (Auto) 0.1 K/mm3 (0.0-0.1); Basophils % (Auto) 0.9 % (0.0-1.8); Eosinophils # (Auto) 0.1 K/mm3 (0.0-0.4); Eosinophils % (Auto) 1.2 % (0.0-4.3); Lymphocytes # (Auto) 2.3 K/mm3 (1.2-5.4); Lymphocytes % (Auto) 29.5 % (13.4-35.0); Mean Corpuscular HGB Conc 36 % (32-34); Mean Corpuscular Hemoglobin 33 pg (28-32); Mean Corpuscular Volume 91 fl (84-94); Monocytes # (Auto) 0.5 K/mm3 (0.0-0.8); Monocytes % (Auto) 6.6 % (0.0-7.3); Platelet Count 189 K/mm3 (140-440); Red Blood Count 4.64 M/mm3 (3.65-5.03); Red Cell Distribution Width 13.2 % (13.2-15.2)
[2019-04-17 00:12] LABS: Hematocrit 42.2 % (35.5-45.6); Hemoglobin 15.2 gm/dl (11.8-15.2)
[2019-04-17 00:17] LABS: BUN/Creatinine Ratio 13; Blood Urea Nitrogen 9 mg/dL (9-20); Calcium 8.7 mg/dL (8.4-10.2); Hemolysis Index 7
[2019-04-17 02:28] VITALS: BP 151/77
== END 2019-04-17 02:32 | disposition home or self-care (01) ==
LOC: ED 22:54
DX: T78.3XXA Angioneurotic edema, initial encounter (principal); Y92.89 Other specified places as the place of occurrence of the external cause; I10 Essential (primary) hypertension; Z86.73 Personal history of transient ischemic attack (TIA), and cerebral infarction without residual deficits; E11.9 Type 2 diabetes mellitus without complications; M19.90 Unspecified osteoarthritis, unspecified site; Z87.442 Personal history of urinary calculi; Z90.89 Acquired absence of other organs; Z87.891 Personal history of nicotine dependence; Z79.82 Long term (current) use of aspirin; Z79.899 Other long term (current) drug therapy; Z91.040 Latex allergy status; Z88.8 Allergy status to other drugs, medicaments and biological substances
CPT/HCPCS: 36415; 80048; 85025; 96374; 96375; 99283; J1200; J2930

== ENCOUNTER 2021-08-21 09:49 | Emergency (ER) | payer MEDICARE ==
[2021-08-21 10:01] VITALS: BP 161/85
[2021-08-21] MEDS ORDERED: dexAMETHasone 20 MG/5 ML VIAL IM ONE (10:11)
[2021-08-21] MEDS ORDERED: hydrOXYzine PAMOATE 25 MG CAP PO ONE (10:12)
--- NOTE | 2021-08-21 10:21 | Emergency Department Report ---
ED Rash HPI - HPI Chief Complaint: Allergic Reaction Stated Complaint: ALLERGIC REACTION Time Seen by Provider: 08/21/21 10:04 Duration: 2 Days Location: Back, Abdomen, Lower Extremities Rash Symptoms: Yes Itching, No Facial Swelling, No Tongue/Oral Swelling, No Breathing Difficulties, No Choking Sensation, No Wheezing/Dyspnea, No Peeling, No Blistering, No Fever, No Lightheaded, No Malaise, No Myalgias Severity: mild Other History: Chief complaint: Rash. HPI: This is a 76-year-old male with history of TIA, CVA, hypertension, kidney stones, hyperlipidemia who presents with rash Sunday. Rash began at his waist. Now has spread to his buttocks back and legs. He has significant itching. Ran out of Benadryl. He denies shortness of breath or lip swelling. Patient has similar rash under armpits previously. PCP Dr. Mcfarland prescribed cortisone cream. ED Review of Systems ROS: Stated complaint: ALLERGIC REACTION Other details as noted in HPI Comment: All other systems reviewed and negative Constitutional: denies: fever, malaise Respiratory: denies: cough, shortness of breath Cardiovascular: denies: chest pain Gastrointestinal: denies: abdominal pain, nausea, vomiting Skin: rash, lesions ED Past Medical Hx - Past Medical History Previous Medical History?: Yes Hx Hypertension: Yes (X 8 YRS; hyperlipidemia) Hx CVA: Yes (2008- mild weakness right side) Hx Heart Attack/AMI: No Hx Diabetes: No Hx Liver Disease: No Hx Renal Disease: No Hx Sickle Cell Disease: No Hx Arthritis: Yes Hx Kidney Stones: Yes Hx Asthma: No Hx COPD: No Hx HIV: No Additional medical history: deaf right ear,hearing aid left ear - Surgical History Past Surgical History?: Yes Hx Pacemaker: No Hx Internal Defibrillator: No Additional Surgical History: left femur,tonsillectomy/ LEFT KNEE REPLACEMENT - Social History Smoking Status: Never Smoker Substance Use Type: None - Medications Home Medications: Home Medications Medication Instructions Recorded Confirmed Last Taken Type Multivitamin [Multiple Vitamins] 1 each PO DAILY 04/29/18 06/17/18 06/13/18 History lisinopriL [Zestril TAB] 20 mg PO PRN PRN 04/29/18 06/14/18 06/16/18 History AtorvaSTATin [Lipitor] 20 mg PO QHS #30 tab 04/30/18 06/14/18 06/16/18 Rx Acetaminophen [Tylenol Extra 500 mg PO PRN PRN 06/14/18 06/17/18 06/14/18 History Strength] Aspirin EC [Ecotrin] 81 mg PO QDAY 06/14/18 06/14/18 06/13/18 History Cholecalciferol (Vitamin D3) 1,000 unit PO DAILY 06/14/18 06/14/18 06/13/18 History [Vitamin D3] Cranberry Conc/Ascorbic Acid 1 each PO DAILY 06/14/18 06/14/18 06/13/18 History [Cranberry Concentrate Softgel] Diazepam [Valium] 5 mg PO PRN PRN 06/14/18 06/17/18 06/12/[address] [Voltaremireya Dr] 75 mg PO DAILY 06/14/18 06/14/18 06/13/18 History [place]-3/Dha/Epa/Fish Oil [Fish Oil 1 cap PO DAILY 06/14/18 06/14/18 06/13/18 History 1,000 mg Softgel] Vitamin B Complex [Super B-50 1 each PO DAILY 06/14/18 06/14/18 06/13/18 History Complex] Famotidine [Pepcid] 40 mg PO QHS #5 tablet 04/17/19 Unknown Rx Prednisone [predniSONE 10 mg 10 mg PO .TAPER #1 tab.ds.pk 04/17/19 Unknown Rx (6-Day Pack, 21 Tabs)] diphenhydrAMINE [Benadryl CAP] 25 mg PO Q8HR PRN #20 capsule 04/17/19 Unknown Rx Clotrimazole [Antifungal] 1 applic TP BID 28 Days #1 08/21/21 Unknown Rx cream..g. hydrOXYzine PAMOATE [Vistaril] 25 mg PO Q6HR PRN #30 capsule 08/21/21 Unknown Rx Rash Exam - Exam General: Vital signs noted. No distress. Alert and acting appropriately. HEENT: No Periorbital Edema, No Conjuctival Injection, No Chemosis, No Perioral Edema, No Tongue Edema, No Uvular Edema, No Compromised Airway, No Drooling Lungs: No Wheezes Skin: Yes Erythema (Erythema circular rash with central clearing different sizes of lesions involving abdomen back lower extremity) ED Course Vital Signs 08/21/21 09:52 Temperature 97.9 F Pulse Rate 92 H Respiratory 20 Rate Blood Pressure 161/85 O2 Sat by Pulse 98 Oximetry ED Medical Decision Making - Medical Decision Making Clinical impression tinea corporis: Clotrimazole for 2 to 4 weeks, patient received IM Decadron and p.o. Vistaril for symptom relief. Referred to PCP for Critical care attestation.: If time is entered above; I have spent that time in minutes in the direct care of this critically ill patient, excluding procedure time. ED Disposition Clinical Impression: Tinea corporis Disposition: HOME / SELF CARE / HOMELESS Is pt being admited?: No Does the pt Need Aspirin: No Condition: Stable Instructions: Body Ringworm Prescriptions: Clotrimazole [Antifungal] 1 applic TP BID 28 Days #1 cream..g. hydrOXYzine PAMOATE [Vistaril] 25 mg PO Q6HR PRN #30 capsule PRN Reason: Itching Referrals: XIN MCFARLAND MD [Staff Physician] - as needed
== END 2021-08-21 10:36 | disposition home or self-care (01) ==
LOC: ED 09:49
DX: B35.4 Tinea corporis (principal); I10 Essential (primary) hypertension; E78.5 Hyperlipidemia, unspecified; Z86.13 Personal history of malaria
CPT/HCPCS: 96372; 99282; J1100; Q0177; J3490